=== PATIENT | male | born 1995 | race Caucasian/White ===

== ENCOUNTER 2017-10-17 23:11 | Emergency (ER) | payer OTHER ==
[~2017-10-17] VITALS: Ht 190.5 cm; Wt 102.5 kg
[2017-10-17 23:23] VITALS: Ht 190.5 cm; Wt 102.5 kg
[2017-10-18 03:46] VITALS: BP 125/75
== END 2017-10-18 03:46 | disposition home or self-care (01) ==
LOC: ED 23:11
DX: S01.01XA Laceration without foreign body of scalp, initial encounter (principal); W22.8XXA Striking against or struck by other objects, initial encounter; Y93.89 Activity, other specified; Y92.89 Other specified places as the place of occurrence of the external cause; Y99.8 Other external cause status
CPT/HCPCS: 90715; J2001

== ENCOUNTER 2017-10-28 08:50 | Emergency (ER) | payer OTHER ==
[~2017-10-28] VITALS: Ht 190.5 cm; Wt 57.2 kg
[2017-10-28 09:01] VITALS: Ht 190.5 cm; Wt 57.2 kg
[2017-10-28 09:50] VITALS: BP 120/66
== END 2017-10-28 09:50 | disposition home or self-care (01) ==
LOC: ED 08:50
DX: S01.01XD Laceration without foreign body of scalp, subsequent encounter (principal); X58.XXXD Exposure to other specified factors, subsequent encounter

== ENCOUNTER 2019-06-10 22:27 | Inpatient (IN) | payer MEDICAID ==
[~2019-06-10] VITALS: Ht 185.4 cm; Wt 95.0 kg
[2019-06-10 22:34] VITALS: Ht 185.4 cm; Wt 95.0 kg
[2019-06-10 23:35] LABS: BASOPHIL % 0.5 % (0-2); PLATELET COUNT 186 x10^3mcL (130-400); RED CELL DISTRIBUTION WIDTH 12.8 % (11.5-14.5)
[2019-06-10 23:41] LABS: CARBON DIOXIDE 25.1 mmol/L (21-32); CHLORIDE SERUM 105 mmol/L (98-107); CREATININE SERUM 1.2 mg/dL (0.7-1.3); GFR1 > 60 mL/min; GLUCOSE SERUM 95 mg/dL (74-106); POTASSIUM SERUM 3.6 mmol/L (3.5-5.1); SODIUM SERUM 142 mmol/L (136-145)
[2019-06-10 23:46] LABS: ALBUMIN 4.1 g/dL (3.4-5.0); ALKALINE PHOSPHATASE 85 U/L (46-116); ALT/SGPT 19 U/L (16-63); AST/SGOT 15 U/L (15-37); BILIRUBIN TOTAL 0.3 mg/dL (0.20-1.00); TOTAL PROTEIN, SERUM 7.2 g/dL (6.4-8.2)
[2019-06-11 01:00] LABS: microscopic required? NO
[2019-06-11 01:19] LABS: UA SPECIFIC GRAVITY >=1.030 (1.005-1.035); urine erythrocyte NEGATIVE (NEGATIVE)
[2019-06-11 01:30] LABS: AMPHETAMINE QUAL UR NONE DETECTED (See below)
[2019-06-11] MEDS ORDERED: BANOPHEN50 MG PO (02:15)
[2019-06-11] MEDS ORDERED: TRAZODONE150 M1 PO (02:15)
[2019-06-11] MEDS ORDERED: RISPERDAL3 M1 PO (02:16)
[2019-06-11 03:01] VITALS: BP 120/77
[2019-06-11 03:33] LABS: T3 TOTAL 1.03 ng/mL
[2019-06-11 03:54] LABS: CHOLESTEROL/HDL RATIO 3.2; MAGNESIUM 2.2 mg/dL (1.8-2.4); PHOSPHOROUS 2.6 mg/dL (2.5-4.9)
[2019-06-11 04:10] LABS: FREE T4 1.19 ng/dL (0.76-1.46); FREE THYROXINE INDEX 2.9 ug/dL (1.4-4.5); T4(THYROXINE) 7.9 ug/dL (4.7-13.3)
[2019-06-11 06:04] VITALS: BP 107/71
[2019-06-11 08:29] LABS: BASOPHIL % 0.3 % (0-2); CARBON DIOXIDE 27.4 mmol/L (21-32); CHLORIDE SERUM 105 mmol/L (98-107); GFR1 > 60 mL/min; GLUCOSE SERUM 85 mg/dL (74-106); PLATELET COUNT 198 x10^3mcL (130-400); POTASSIUM SERUM 3.9 mmol/L (3.5-5.1); RED CELL DISTRIBUTION WIDTH 12.8 % (11.5-14.5); SODIUM SERUM 141 mmol/L (136-145)
[2019-06-11 09:05] VITALS: BP 102/55
== END 2019-06-11 12:13 | disposition left against medical advice (07) | DRG 750 ==
LOC: ED 22:27 → DU 06-11 01:45
PROVIDERS: Emergency Medicine; ADMIT Internal Medicine
DX: F20.9 Schizophrenia, unspecified (principal); G92 Toxic encephalopathy; T50.901A Poisoning by unspecified drugs, medicaments and biological substances, accidental (unintentional), initial encounter; G47.00 Insomnia, unspecified; Z68.29 Body mass index [BMI] 29.0-29.9, adult; Y92.009 Unspecified place in unspecified non-institutional (private) residence as the place of occurrence of the external cause
CPT/HCPCS: 84439; G0378; G0480; J1200; J1630; J2060